=== PATIENT | female | born 1975 | race Caucasian/White ===

== ENCOUNTER 2016-12-11 05:35 | Day surgery (SDC) | payer BC ==
[~2016-12-11] VITALS: Ht 157.5 cm; Wt 82.6 kg
[~2016-12-11 05:35] MED LIST: ADVIL200 MG PO; CLARITIN-D 21 TABLET PO; CYTOTEC200 MCG PO; LOMEDIA 24 FE1 EACH PO
[2016-12-11 06:54] VITALS: BP 133/93
[2016-12-11 07:04] VITALS: BP 133/93
[2016-12-11 13:58] VITALS: BP 132/83
[2016-12-11 16:19] VITALS: BP 139/81
[2016-12-11 18:58] VITALS: BP 161/72
[2016-12-11 20:55] VITALS: BP 145/84
[2016-12-12 00:04] VITALS: BP 149/86
[2016-12-12 03:17] VITALS: BP 141/81
[2016-12-12 07:40] VITALS: BP 140/90
[2016-12-12 08:14] LABS: EOSINOPHIL (%) 0.4 % (0-5); HEMATOCRIT 32.3 % (36.0-46.0); IMMATURE GRANULOCYTE (%) 0.3 % (0.0-0.7); INSTRUMENT ABS NEUTROPHIL CT 5.2 K/uL; LYMPHOCYTE COUNT 1.7 K/uL (1.0-2.8); MCH 24.6 PG (29.0-34.0); MCHC 31.9 G/DL (30.0-36.0); MCV 77.1 FL (83-99); MEAN PLAT.VOLUME 9.1 uM^3 (9.5-12.4); MONOCYTE (%) 8.7 % (3-12); MONOCYTE COUNT 0.7 K/uL (0-0.8); NEUTROPHIL (%) 68.1 % (45-76); NEUTROPHIL COUNT 5.2 K/uL (1.8-6.4); PLATELET COUNT 429 K/uL (156-360); RBC DIS.WIDTH-CV 17.5 % (11.8-14.6); RBC DIS.WIDTH-SD 48.8 % (39-53); RED BLOOD COUNT 4.19 M/uL (3.80-5.20)
[2016-12-12 08:19] LABS: WHITE BLOOD COUNT 7.7 K/uL (4.1-10.2)
[2016-12-12 08:33] LABS: ANION GAP 10 MEQ/L (2-14); CHLORIDE 103 MEQ/L (99-109); GFR ESTIMATE (CALCULATED) > 59 mL/min/; GLUCOSE 92 mg/dL (70-99); POTASSIUM 3.8 MEQ/L (3.7-5.4); SAMPLE HEMOLYSIS CHECK 0; SAMPLE ICTERIC CHECK 0; SAMPLE LIPEMIA CHECK 0; SODIUM 137 MEQ/L (136-147); UREA NITROGEN (BUN) 4 mg/dL (9-23)
== END 2016-12-12 10:56 | disposition home or self-care (01) ==
LOC: SDC 05:35 → 2SOUTH 10:05 → 2EASTP 10:05 → 2SOUTH 10:05 → 2EASTP 13:37 → SDC 15:05 → 2EASTP 12-12 10:56
PROVIDERS: Obstetrics & Gynecology Gynecology
DX: D25.9 Leiomyoma of uterus, unspecified (principal); N72 Inflammatory disease of cervix uteri; N94.6 Dysmenorrhea, unspecified; D50.0 Iron deficiency anemia secondary to blood loss (chronic); K66.0 Peritoneal adhesions (postprocedural) (postinfection); E66.09 Other obesity due to excess calories; Z68.33 Body mass index [BMI] 33.0-33.9, adult; Z83.3 Family history of diabetes mellitus
CPT/HCPCS: 80048; 85025; 87086; 88307; G0378; J0330; J0690; J1100; J1170; J1644; J1885; J2250; J2405; J2710; J2765; J3010; J7120